=== PATIENT | female | born 1935 | race Hispanic/Latino ===

== ENCOUNTER 2017-01-03 12:57 | Outpatient (CLI) | payer MEDICARE ==
--- NOTE | 2017-01-03 17:28 | Magnetic Resonance Report ---
MR scan of the cranium was performed without contrast. Pulse sequences included: 1. T1 weighted sagittal and axial images without contrast 2. T2 weighted axial and coronal images 3. FLAIR axial images 4. Diffusion-weighted axial images 5. Apparent diffusion coefficient images Views of the posterior fossa showed a normal craniocervical junction. Cerebellar pontine angles were normal with normal seventh-eighth nerve complexes. Brainstem showed white matter changes in the basis pontis. The cerebellum showed multiple small cysts in both hemispheres. The ventricular system showed moderate dilation of the lateral ventricles. Images of the hemispheres showed extensive white matter changes consistent with araiosis. There were left and right white matter changes extending into the cortex in the occipital regions bilaterally suggestive of infarcts. In addition there was an area in the left parasagittal region of increased signal on diffusion weighted images suggestive of a relatively acute infarct. Moderate cortical atrophy was present with enlargement of the Sylvian fissures. Hippocampal atrophy was also present. Sinuses, orbits, pituitary and basal ganglia were normal. Impression: Abnormal MR scan of the cranium without contrast. 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
--- NOTE | 2017-01-03 17:33 | Magnetic Resonance Report ---
MR angiogram was performed of the intracranial circulation 3-D [id number] spoiled grass images were obtained of the intracranial circulation. The images of the carotid arteries showed no areas of occlusion or aneurysmal dilatation. The vertebral basilar system was also patent. The posterior cerebral arteries were poorly seen. there may be a skip lesion in the left P3 posterior cerebral. Impression: Abnormal angiogram of the intracranial circulation showing poor visualization of the posterior cerebral arteries
== END 2017-01-03 12:58 | disposition home or self-care (01) ==
LOC: SPVIMAG 12:57
PROVIDERS: ATTEND Specialist
DX: I63.9 Cerebral infarction, unspecified (principal); G93.0 Cerebral cysts; R56.9 Unspecified convulsions; G91.9 Hydrocephalus, unspecified; G31.89 Other specified degenerative diseases of nervous system; R93.8 Abnormal findings on diagnostic imaging of other specified body structures
CPT/HCPCS: 70544; 70551